=== PATIENT | male | born 1945 | race Caucasian/White ===

== ENCOUNTER 2021-04-01 15:46 | Emergency (ER) | payer OTHER, MEDICARE, BC ==
[~2021-04-01] VITALS: Ht 185.4 cm; Wt 88.9 kg
[~2021-04-01 15:46] MED LIST: AMA1T PO; ASPI-1009 PO; CALC-1205 PO; CLON-529 PO; CLOP75TA34 PO; LEVO175T52 PO; LINA5TAB4 PO; LISI-222 PO; LOSA100T57 PO; MET0.75G TP; METF500T PO; METO50TA7 PO; MULT-1085 PO; PIOG45TA PO; ROSU40TA PO
[2021-04-01] MEDS ORDERED: oxymetazoline 15 ML nasal spray NS ONE (16:50)
[2021-04-01] MEDS ORDERED: tranexamic acid 100mg/ml inj. TP ONE (16:50)
[2021-04-01] MEDS ORDERED: AMOX-422 PO (17:19)
[2021-04-01] MEDS ORDERED: OXYM30SP26 BOTHNARES (18:11)
[2021-04-01] MEDS ORDERED: 0.9126SP BOTHNARES (18:11)
[2021-04-01 18:23] VITALS: BP 124/99
== END 2021-04-01 18:24 | disposition home or self-care (01) ==
LOC: ER 15:48
DX: R04.0 Epistaxis (principal); E03.9 Hypothyroidism, unspecified; Z98.890 Other specified postprocedural states; Z79.82 Long term (current) use of aspirin; Z79.899 Other long term (current) drug therapy
CPT/HCPCS: 30901; 99284